=== PATIENT | female | born 1970 | race Caucasian/White ===

== ENCOUNTER → 2024-07-25 | Outpatient (REF) | payer OTHER ==
[2024-07-25 13:09] LABS: APPEARANCE, URINE CLEAR (CLEAR); BACTERIA, URINE AUTO 1+ (NEGATIVE); BILIRUBIN, URINE AUTO NEGATIVE (NEGATIVE); BLOOD, URINE BLOOD 2+ (NEGATIVE); COLOR, URINE STRAW (YELLOW); GLUCOSE, URINE (UA) AUTO NEGATIVE (NEGATIVE); KETONE, URINE AUTO NEGATIVE (NEGATIVE); LEUKOCYTE ESTERASE, URINE AUTO 3+ (NEGATIVE); NITRITE, URINE AUTO NEGATIVE (NEGATIVE); PROTEIN, URINE AUTO NEGATIVE (NEGATIVE); RBC, URINE AUTO 0 /HPF (0-3); SPECIFIC GRAVITY URINE AUTO 1.002 (1.002-1.035); SQUAMOUS EPITHELIAL CELL UR AU 1 /HPF (0-6); UROBILINOGEN, URINE AUTO 0.2 mg/dL (0.0-2.0); WBC, URINE AUTO 11 /HPF (0-3)
== END ==
LOC: M LAB REF 12:09
PROVIDERS: ATTEND Physician Assistant Medical
DX: N39.0 Urinary tract infection, site not specified (principal)

== ENCOUNTER 2024-10-17 08:07 | Day surgery (SDC) | payer OTHER ==
[~2024-10-17] VITALS: Ht 167.6 cm; Wt 76.7 kg
[~2024-10-17 08:07] MED LIST: AMLO1TAB25 PO; BUPR-597 PO; LISI10TA24 PO; METF850T4 PO; VITA100093 PO
[2024-10-17] MEDS ORDERED: propofoL 200 MG/20 ML VIAL As Ordered ONE (09:36)
[2024-10-17 09:44] VITALS: TEMP 98.1
[2024-10-17 10:00] VITALS: BP 103/65; O2SAT 96
== END 2024-10-17 10:30 | disposition home or self-care (01) ==
LOC: M OPP 08:07
PROVIDERS: ATTEND Internal Medicine Gastroenterology
DX: Z12.11 Encounter for screening for malignant neoplasm of colon (principal); K57.30 Diverticulosis of large intestine without perforation or abscess without bleeding; K64.0 First degree hemorrhoids; Z79.899 Other long term (current) drug therapy